=== PATIENT | female | born 1970 | race Caucasian/White ===

== ENCOUNTER 2019-10-22 07:26 | Inpatient (IN) | payer MEDICAID, SELFPAY ==
[2019-10-22] VITALS (10 sets, daily range): BP systolic 109–163; BP diastolic 63–100; PULSE 87–156; RESP 8–20; TEMP 36.4–36.8; O2SAT 89–100
--- NOTE | ~2019-10-22 | XR_ITS ---
EXAMINATION: XR humerus RT INDICATION: Soft tissue wound overlying the proximal humerus TECHNIQUE: Two views of the right humerus are obtained. COMPARISON: None available FINDINGS: There is no fracture, dislocation, or subluxation. Bone alignment is normal. There is later al soft tissue swelling overlying the humeral head and proximal humerus. No underlying osseous abnorm ality is identified. IMPRESSION: 1. Soft tissue swelling of the shoulder and upper arm without evidence of underlying osseous abnormal ity. Reviewed, dictated and finalized at location A. IMPRESSION: 1. Soft tissue swelling of the shoulder and upper arm without evidence of under lying osseous abnormality.
--- NOTE | 2019-10-22 07:43 | ED.WOUNDLAC ---
HPI - Wound/Laceration General Chief Complaint: Wound/Laceration Stated Complaint: R UPPER ARM INJECTION INFX Time Seen by Provider: 10/22/19 07:32 Source: RN notes reviewed History of Present Illness HPI narrative: Patient presents emergency department from home for right shoulder abscess. Patient states symptoms began 2 days ago. Patient states that the area has enlarged and did begin draining on its own yesterday with purulent drainage. Patient notes pain to the area. States that she is an IV drug user with fentanyl and has injected in that region recently. Patient denies any fevers or chills numbness or tingling of the extremities or any other symptoms of concern Related Data Home Medications Medication Instructions Recorded Confirmed clonidine HCl [Catapres] 0.1 mg PO DAILY 10/22/19 10/22/19 Allergies Allergy/AdvReac Type Severity Reaction Status Date / Time Penicillins Allergy Unknown Other Verified 10/22/19 08:51 Review of Systems Review of Systems: Narrative: Gen.: Denies fevers or chills ENT: Denies congestion Respiratory: Denies shortness of breath or cough CV: Denies chest pain or palpitations GI: Denies abdominal pain nausea, emesis or diarrhea Musculoskeletal: Denies back pain or muscle pain Neuro: Denies numbness, tingling, weakness or focal weakness Skin: See HPI Except as documented, all other systems reviewed and negative [facility] Past Medical History Medical History (Updated 10/22/19 @ 10:08 by Claude Boateng DO) Asthma Hypertension IV drug abuse Seizure last one in april Surgical History Surgical History No significant past surgical history Family History Family History Father Acute myocardial infarction Mother Ovarian cancer Social History Social History Social History: The patient is unemployed and homeless. She is an IV drug user and has been using illicit drugs on and off for about 20 years. She smokes about 1/2 PPD if she is able to get this from others. Does not have anyone to designate as her decision maker. Smoking status: Current every day smoker Tobacco type: cigarettes Substance use: current Substance use type: IV drugs Other substance usage details: Fentanyl Last use: 2:00 am Living arrangements: homeless Occupation/Education: unemployed Exam Narrative: Exam Narrative: APPEARANCE: No acute distress, nontoxic, resting in bed EYES: EOMI HEENT: Normocephalic, atraumatic, OMM RESPIRATORY: No respiratory distress Clear to auscultation bilaterally with no rhonchi wheezing or rales. CARDIOVASCULAR: Regular rate and rhythm without murmurs rubs or gallops. Bilateral pulse 2+ ABDOMINAL: Soft, nontender, nondistended, no rebound or guarding MUSCULOSKELETAl: Moves all extremities. No clubbing, cyanosis or edema. Tenderness of the right lateral arm in the area of the abscess range of motion right shoulder elbow and wrist right upper extremity neurovascular intact NEURO: Awake and alert. Following commands, speech normal, no focal deficits SKIN:: Warm, dry. Large area of erythema and fluctuance to the right lateral shoulder with purulent drainage present consistent with large abscess PSYCHIATRIC: Normal affect/mood, Course Course Emergency Course: Discussed with Dr. Dhillon who plans to take patient to the OR today for I&D NAOMIE Kimball for Dr. Dhillon is present emergency department to evaluate the patient Discussed with patient plan for OR in agreement Vital Signs Vital signs: Vital Signs Temperature 97.7 F 10/22/19 07:36 Pulse Rate 110 H 10/22/19 07:36 Respiratory Rate 14 10/22/19 07:36 Blood Pressure 132/79 10/22/19 07:36 Pulse Oximetry 99 10/22/19 07:36 Temperature 98.2 F 10/22/19 09:21 Pulse Rate 156 H 10/22/19 09:21 Respiratory Rate 20 10/22/19 09:21 Blo
--- NOTE | 2019-10-22 08:11 | PC.NURSE ---
RN attempted IV x3. Pt. has hx of IV drug abuse. Called Ultrasound ARCHITECTURAL SALES CONSULTANT specialist to attempt access.
--- NOTE | 2019-10-22 08:50 | PM.IMHP ---
H&P: HPI History of Present Illness Chief complaint: R UPPER ARM INJECTION INFX Narrative: Alexandra Loyola is a 49 year old female who is an IV drug user that presented to the ER for evaluation of right upper arm swelling and pain. She reports first noticing pain in her right upper arm about 5 days ago. She reportedly has recently injected Fentanyl in this same area at the right upper arm. She reports noticing redness and swelling about 2 days after first noticing pain in the right upper arm. Last night around 2:00 am she noticed pus-like drainage from the abscess and this is also when she last injected Fentanyl. The pain continued to worsen and she presented to the ED for further evaluation. She was found to have a right upper arm abscess in the ED and our service was contacted for surgical evaluation. The patient is now being seen in the ED and has no IV access at this time. They have the IV access nurse at the bedside trying to find access with an ultrasound. She reports pain in her right upper arm and decreased range of motion of the right shoulder. She is tearful on my exam and anxious. Denies fevers or chills at home. No history of abscess in the past or MRSA. No other complaints at this time. Have been unable to get labs on the patient due to her poor vascular access. Also to note, the patient states she is homeless and unemployed. She states that she has not seen a primary care provider in years. She has been using illicit drugs on and off for about 20 years. Review of Systems Constitutional: Constitutional: Reports as per HPI, Reports no additional constitutional complaints, Denies chills, Denies excessive sweating, Denies fatigue, Denies fever(s) and Denies weakness Eyes: Eyes: Reports no additional eye complaints, Denies change in vision and Denies loss of vision ENT: Reports system reviewed and no additional complaints, except as documented, Denies dysphagia, Denies dizziness, Denies dry mouth, Denies hearing loss and Denies lip swelling Cardiovascular: Cardiovascular: Reports no additional cardiovascular complaints, Denies chest pain, Denies syncope, Denies radiating jaw, neck or arm pain, Denies dyspnea and Denies dyspnea on exertion Respiratory: Respiratory: Reports no additional respiratory complaints, Denies cough, Denies dyspnea, Denies dyspnea on exertion and Denies wheezing Gastrointestinal: Gastrointestinal: Reports no additional gastrointestinal complaints, Denies abdominal pain, Denies bloating, Denies change in bowel habits, Denies dysphagia, Denies diarrhea, Denies nausea and Denies vomiting Musculoskeletal: Musculoskeletal: Denies abnormal gait, Denies myalgias, Reports joint swelling (right shoulder around abscess), Reports limited range of motion (right shoulder d/t abscess), Denies numbness, Reports radiating pain into limb (right arm) and Denies tingling Integumentary/Breasts: Skin/Breast: Reports system reviewed and no additional complaints, except as docu, Reports as per HPI and Reports swelling (right arm abscess) Neurologic: Reports system reviewed and no additional complaints, except as documented, Denies abnormal gait, Denies confusion, Denies dizziness, Denies syncope, Denies loss of vision, Denies tingling and Denies weakness Psychiatric: Psychiatric: Reports anxiety (due to pain) and Denies confusion Endocrine: Endocrine: Denies cold intolerance, Denies excessive sweating, Denies fatigue, Denies heat intolerance and Denies polyuria [facility] Family History Family History Father Acute myocardial infarction Mother Ovarian cancer Social History Social History Social History: The patient is unemployed and homeless. She is an IV drug user and has been using illicit drugs on and off for about 20 years. She smokes about 1/2 PPD if she is able to get this from others. Does not have anyone to designate as her decision maker.
[2019-10-22 09:10] LABS: Basophils Absolute Auto 0.1 K/mm3 (0.0-0.1); Basophils Percent Auto 0.5 % (0.2-1.2); Eosinophils Percent Auto 0.1 % (0-4.4); Hematocrit 45.2 % (37.0-47.0); Immature Granulocyte Absolute 0.13 K/mm3 (0.00-0.031); Immature Granulocyte Percent A 0.7 % (0-0.5); Lymphocytes Absolute Auto 1.34 K/mm3 (0.9-3.2); Lymphocytes Percent Auto 7.1 % (18.3-44.2); Mean Corpuscular HGB Conc 33.2 g/dl (32-36); Mean Corpuscular Hemoglobin 28.4 pg (26-34); Mean Corpuscular Volume 85.4 fl (80-100); Mean Platelet Volume 10.1 fl (7.4-10.4); Monocytes Absolute Auto 1.4 K/mm3 (0.1-0.6); Monocytes Percent Auto 7.4 % (2.6-8.5); Neutrophils Percent Auto 84.2 % (45.5-73.1); Platelet Count Result 295 k/mm3 (150-375); Red Blood Count 5.29 M/mm3 (4.2-5.4); Red Cell Distribution Width 12.8 % (11.5-14.5)
--- NOTE | 2019-10-22 09:12 | WPDANESEPPF ---
Anes - Initial Pre Proc Eval Procedure: Operation Date: 10/22/19 08:45 Proposed Procedures p Incision and Drainage Right Shoulder Abscess - Ramos Dhillon MD Date/Time: 10/22/19 09:12 Surgeon: Ramos Dhillon MD Pre Op Diagnosis: R UPPER ARM INJECTION INFX Patient Data Age: 49 Gender: F Height: 1.7 m Weight: 55 kg Last Vital Signs Temp 36.5 C 10/22/19 07:36 Pulse 110 H 10/22/19 07:36 Resp 14 10/22/19 07:36 BP 132/79 10/22/19 07:36 Pulse Ox 99 10/22/19 07:36 Allergies Allergy/AdvReac Type Severity Reaction Status Date / Time Penicillins Allergy Unknown Other Verified 10/22/19 08:51 Home Medications Medication Instructions Recorded Confirmed Type clonidine HCl [Catapres] 0.1 mg PO DAILY 10/22/19 History Laboratory Tests 10/22/19 10/22/19 10/22/19 08:58 08:58 08:59 WBC 19.0 K/mm3 H K/mm3 (4.5-10.0) RBC 5.29 M/mm3 M/mm3 (4.2-5.4) Hgb 15.0 g/dL g/dL (12.0-15.0) Hct 45.2 % % (37.0-47.0) MCV 85.4 fl fl (80-100) MCH 28.4 pg pg (26-34) MCHC 33.2 g/dl g/dl (32-36) RDW 12.8 % % (11.5-14.5) Plt Count 295 k/mm3 k/mm3 (150-375) MPV 10.1 fl fl (7.4-10.4) Immature Gran % (Auto) 0.7 % H % (0-0.5) Neut % (Auto) 84.2 % H % (45.5-73.1) Lymph % (Auto) 7.1 % L % (18.3-44.2) [place] % (Auto) 7.4 % % (2.6-8.5) Eos % (Auto) 0.1 % % (0-4.4) Baso % (Auto) 0.5 % % (0.2-1.2) Lymph # (Auto) 1.34 K/mm3 K/mm3 (0.9-3.2) [place] # (Auto) 1.4 K/mm3 H K/mm3 (0.1-0.6) Eos # (Auto) 0.0 K/mm3 K/mm3 (0-0.3) Baso # (Auto) 0.1 K/mm3 K/mm3 (0.0-0.1) Abs Immat Gran (auto) 0.13 K/mm3 H K/mm3 (0.00-0.031) Absolute Neuts (auto) 16.0 K/mm3 H K/mm3 (1.3-6.7) Absolute Nucleated RBC 0.0 K/mm3 K/mm3 (0.0-0.012) Nucleated RBC % 0.0 % % (0.0-0.2) PT Pending INR Pending APTT Pending Sodium Potassium Chloride Carbon Dioxide BUN Creatinine Estim Creat Clear Calc Estimated GFR Glucose Lactic Acid Pending Calcium 10/22/19 08:59 WBC RBC Hgb Hct MCV MCH MCHC RDW Plt Count MPV Immature Gran % (Auto) Neut % (Auto) Lymph % (Auto) [place] % (Auto) Eos % (Auto) Baso % (Auto) Lymph # (Auto) [place] # (Auto) Eos # (Auto) Baso # (Auto) Abs Immat Gran (auto) Absolute Neuts (auto) Absolute Nucleated RBC Nucleated RBC % PT INR APTT Sodium Pending Potassium Pending Chloride Pending Carbon Dioxide Pending BUN Pending Creatinine Pending Estim Creat Clear Calc Pending Estimated GFR Pending Glucose Pending Lactic Acid Calcium Pending Patient hx anesthesia problems: none Family hx anesthesia problems: none [facility] Past Medical History Medical History (Updated 10/22/19 @ 09:24 by Amari Rodas DO) Asthma Hypertension IV drug abuse Seizure last one in april Surgical History Surgical History No significant past surgical history Family History Family History Father Acute myocardial infarction Mother Ovarian cancer Social History Social History Social History: The patient is unemployed and homeless. She is an IV drug user and has been using illicit drugs on and off for about 20 years. She smokes about 1/2 PPD if she is able to get this from others. Does not have anyo
[2019-10-22 09:20] LABS: INR 1.2; Prothrombin Time 14.9 Seconds (11.1-14.7)
[2019-10-22 09:21] LABS: Partial Thromboplastin Time 35.8 SECONDS (22.3-36.8)
[2019-10-22 09:22] LABS: Lactic Acid Reflex 1.8 mmol/L (0.7-2.1)
[2019-10-22 09:22] LABS: Blood Urea Nitrogen 19 mg/dL (7-17); Calcium 9.4 mg/dL (8.4-10.2); Carbon Dioxide 27 mmol/L (22-30); Chloride 95 mmol/L (98-107); Estimated CRCL calculation 74 ml/min; Estimated Glomerular Filt Rate > 60; Glucose 126 mg/dL (65-105); Potassium 4.5 mmol/L (3.4-5.0); Sodium 131 mmol/L (137-145)
[2019-10-22] MEDS: LACTATED RINGERS 1,000 ML 30 ML IV CONT (09:25)
--- NOTE | 2019-10-22 09:34 | SUR.PREOP ---
PT OFFERED THAT FAMILY BE NOTIFIED AND UPDATED RELATED TO HER STAY IN OUR DEPT/SHE DENIES NEED TO NOTIFY ANYONE.
--- NOTE | 2019-10-22 10:20 | PM.PNGS ---
Progress Note: A&P Assessment and Plan (1) Abscess of right arm: Code(s): L02.413 - Cutaneous abscess of right upper limb Status: Acute Assessment and Plan: Will proceed with emergent incision and drainage of this abscess. IV access was established in the emergency room with difficulty. She will require outpatient care following discharge. (2) IV drug abuse: Code(s): F19.10 - Other psychoactive substance abuse, uncomplicated Status: Chronic Assessment and Plan: Likely etiology of abscess. Will consult hospitalist for management and possibility of withdrawal symptoms. (3) Homeless single person: Code(s): Z59.0 - Homelessness Status: Chronic Assessment and Plan: Patient to be admitted as her social situation makes it likely she will have further problems and failed to follow up if she is discharged. Subjective Subjective Date/Time Seen: 10/22/19 10:20 Patient seen in the preoperative area. I discussed her care with the emergency room physician and with Callie BUCKNER. She has a long history of IV drug abuse and presented to the emergency room with a large abscess over the right deltoid and shoulder. It is very painful. She is taken to surgery now for incision and drainage. Review of Systems Review of Systems: All systems reviewed & are unremarkable except as noted in HPI and below Constitutional: Constitutional: Denies headache(s) Cardiovascular: Cardiovascular: Denies chest pain and Denies dyspnea Respiratory: Respiratory: Denies cough and Denies dyspnea Neurologic: Denies confusion and Denies headache(s) Exam Extrem: Right upper extremity: shoulder/upper arm (Large abscess with 2 areas necrotic skin, fluctuant, tender) abnormal to inspection (Large abscess), tenderness, swelling and warmth Objective Data Vital Signs Vital Signs: Vital Signs - 24 hr 10/22/19 07:36 10/22/19 09:10 10/22/19 09:21 Temperature 36.5 C 36.8 C Pulse Rate 110 H 106 H 156 H Respiratory Rate 14 18 20 Blood Pressure 132/79 127/85 146/79 H Pulse Oximetry 99 99 89 L Intake/Output Intake/Output: Intake & Output 10/19/19 10/20/19 10/21/19 10/22/19 23:59 23:59 23:59 23:59 Intake Total 250 Balance 250 Meds/Results Medications: Active Medications Generic Name Dose Route Start Last Admin Trade Name Freq PRN Reason Stop Dose Admin Fentanyl Citrate 25 mcg 10/22/19 09:25 Sublimaze IV PUSH Q2M PRN Pain Lactated Ringer's 1,000 mls @ 30 mls/hr 10/22/19 09:25 10/22/19 09:25 Lr - Lactated Ringers Iv IV CONT 30 mls/hr .Q24H JUSTYN Administration Lactated Ringer's 1,000 mls @ 30 mls/hr 10/22/19 09:25 Lr - Lactated Ringers Iv IV CONT .Q24H JUSTYN Vancomycin HCl 750 mg in 250 mls @ 250 mls/hr 10/23/19 04:00 Vancomycin 750 Mg/D5w 250 Ml IVPB Q18H JUSTYN Ondansetron HCl 4 mg 10/22/19 09:25 Zofran Inj IV PUSH ONCE PRN Nausea Radiology Results: ITS Impressions Humerus X-Ray 10/22/19 08:20 IMPRESSION: 1. Soft tissue swelling of the shoulder and upper arm without evidence of underlying osseous abnormality. Labs Labs: Laboratory Results - last 24 hr 10/22/19 10/22/19 10/22/19 08:58 08:58 08:59 WBC 19.0 H RBC 5.29 Hgb 15.0 Hct 45.2 MCV 85.4 MCH 28.4 MCHC 33.2 RDW 12.8 Plt Count 295 MPV 10.1 Immature Gran % (Auto) 0.7 H Neut % (Auto) 84.2 H Lymph % (Auto) 7.1 L [place] % (Auto) 7.4 Eos % (Auto) 0.1 Baso % (Auto) 0.5 Lymph # (Auto) 1.34 [place] # (Auto) 1.4 H Eos # (Auto) 0.0 Baso # (Auto) 0.1 Abs Immat Gran (auto) 0.13 H Absolute Neuts (auto) 16.0 H Absolute Nucleated RBC 0.0 Nucleated RBC % 0.0 PT 14.9 H INR 1.2 APTT 35.8 Sodium Potassium Chloride Carbon Dioxide BUN Creatinine Estim Creat Clear Calc Estimated GFR Glucose Lactic Acid 1.8 Calcium 10/22/19
--- NOTE | 2019-10-22 10:26 | P.OP_ITS ---
Procedure Note - Detailed Date of procedure: 10/22/19 Pre-op diagnosis: R UPPER ARM INJECTION INFX Right deltoid and shoulder abscess Post-op diagnosis: same Procedure performed: Incision and drainage of complex right shoulder abscess Description of procedure: Patient was taken to surgery and induced into general anesthesia per LMA. She was turned in left look lateral decubitus position so that the right shoulder was able to be prepped and draped. A stab incision was made over the more lateral necrotic area which had some purulent drainage already. Copious amounts of foul-smelling abscess fluid came out. Cultures were obtained. Once the abscess was drained with the suction, I went ahead and excised the necrotic tissue associated with this opening. I suctioned the abscess cavity thoroughly. I then irrigated the cavity with saline. I broke up loculations with my finger. I then packed the abscess cavity with 1 in iodoform Nu Gauze. The wound was dressed with bulky fluffs ABDs and tape. The patient was returned to a supine position, awakened and taken to recovery in good condition. Anesthesia: GLMA Surgeon: Ramos Dhillon MD Project Management Analyst: Anthony OCAMPO Estimated blood loss (mL): 5 Drains: No Packing: Yes (1 in iodoform Nu Gauze) Pathology: yes (Cultures only) Complications: None Condition: stable Disposition: PACU Findings: Large abscess right shoulder
--- NOTE | 2019-10-22 11:02 | SUR.PHASEI ---
1058; CALLED DR HODGES. PT CONTINUES TO CRY SOFTLY IN PAIN. STATES 7-12/14. DILAUDID ORDERED. PT COMFORTED
[2019-10-22] MEDS: HYDROMORPHONE HCL 1 MG/ML INJ 0.5 MG IV PUSH ×2 (11:06→11:20)
--- NOTE | 2019-10-22 11:19 | SUR.PHASEI ---
1118; PT RESTING QUIETLY. STATES PAIN -11/13. PT NO LONGER CRYING. CALM.
[2019-10-22] MEDS: LACTATED RINGERS 1,000 ML 100 ML IV CONT (12:41)
--- NOTE | 2019-10-22 13:45 | PCDIET ---
Patient arrived to floor from PACU on 10/22/2019 at 1200. Patient's IV was saline locked, and on room air. Report received from MAVIS Lepe.
--- NOTE | 2019-10-30 15:36 | P.DS_ITS ---
DS: Admitting Diagnosis Admitting Diagnosis Admitting Diagnosis: Cutaneous abscess of right upper limb DS: Discharge Diagnosis Discharge Diagnosis (1) Abscess of right arm: Code(s): L02.413 - Cutaneous abscess of right upper limb Status: Acute Assessment and Plan: Patient presented to the emergency room on the day of admission October 22, 2019 with a large right deltoid and shoulder abscess most likely due to a dirty needle and IV drug use. She was taken to the operating room and incision and drainage was performed. The wound was packed. She was to stay overnight and have her packing removed the next day. Instead the patient left AMA that night with no further treatment being able to be rendered. (2) IV drug abuse: Code(s): F19.10 - Other psychoactive substance abuse, uncomplicated Status: Chronic (3) Hypertension: Code(s): I10 - Essential (primary) hypertension Status: Acute (4) Homeless single person: Code(s): Z59.0 - Homelessness Status: Chronic DS: Summary Time Spent with Patient Time attestation: Total time spent providing and/or coordinating discharge services: As above. Patient presented with large right shoulder abscess which was incised and drained and packed. She left AMA the night of surgery. Discharge Plan Discharge Attending physician on discharge: Ramos Dhillon Consulting providers: Nazario Edmonds ; Jayce Vilchis ; Callie Higgins Discharging Clinician: Ramos Dhillon Anticipated Discharge Date/Time: 10/22/19 20:30 Patient Disposition: Left Against Medical Advice Discharge Instructions: Unable to be given Patient Instructions: Pain Management (DC) Follow-up/Referrals: Ramos Dhillon MD [Physician] - Other (We will try to contact her for a follow-up visit.) Discharge Medications: Continued clonidine HCl [Catapres] 0.1 mg tablet 0.1 mg PO DAILY RF: 0 buprenorphine-naloxone 8-2 mg tablet, sublingual SUBLINGUAL RF: 0 Date of admission: 10/22/19 11:50 Primary Care Provider: PHYSICIAN,REMOTE SENSING ADVISOR Admitting Provider: Ramos Dhillon Discharge Date/Time: 10/22/19 18:10 Attending physician on admission: Ramos Dhillon Condition: Stable
--- NOTE | 2019-11-13 09:29 | P.CONIM_ITS ---
HPI Data of Consult Consult date: 11/13/19 Requesting Physician: Ramos Dhillon MD Primary Care Provider: HUMAN RESOURCES TECHNICIAN PHYSICIAN Consult Narrative Narrative: Alexandra Loyola is a 49 year old female consulted by surgical service for assistance in treating an abscess. Before patient could be seen she sliding out of the hospital against medical advice so no consultation was formally performed [facility] Past Medical History Medical History (Updated 10/22/19 @ 10:24 by Ramos Dhillon MD) Asthma Hypertension IV drug abuse Seizure last one in april Surgical History Surgical History No significant past surgical history Family History Family History Father Acute myocardial infarction Mother Ovarian cancer Social History Social History Social History: The patient is unemployed and homeless. She is an IV drug user and has been using illicit drugs on and off for about 20 years. She smokes about 1/2 PPD if she is able to get this from others. Does not have anyone to designate as her decision maker. Smoking packs per day: 0.5 Smoking cigarettes per day: 10.0 Years smoked: 35 Smoking pack-years: 17.50 Smoking status: Current every day smoker Tobacco type: cigarettes Alcohol intake: never Substance use: current Substance use type: opiates Other substance usage details: Fentanyl Last use: 2:00 am Living arrangements: homeless Occupation/Education: unemployed Spiritual care concerns: No Meds Home Medications and Allergies Home Medications Medication Instructions Recorded Confirmed Type buprenorphine-naloxone tablet SUBLINGUAL 10/22/19 History clonidine HCl [Catapres] 0.1 mg PO DAILY 10/22/19 10/22/19 History Allergies Allergy/AdvReac Type Severity Reaction Status Date / Time Penicillins Allergy Unknown Other Verified 10/22/19 08:51 Results Labs CBC & Chem 7: 10/22/19 08:59 10/22/19 08:59
== END 2019-10-22 18:10 | disposition left against medical advice (07) | DRG 361 ==
LOC: ANHED 08:17 → ANHSURGERY 08:19 → ANH3MEDSUR 11:56
PROVIDERS: Admitting Provider Surgery; Emergency Provider Emergency Medicine; Visit Provider Surgery
PROC: 0HBBXZZ Excision of Right Upper Arm Skin, External Approach (ICD-10-PCS; principal; 2019-10-22 08:45)
DX: L02.413 Cutaneous abscess of right upper limb (principal); I96 Gangrene, not elsewhere classified; F19.10 Other psychoactive substance abuse, uncomplicated; I10 Essential (primary) hypertension; F17.210 Nicotine dependence, cigarettes, uncomplicated; Z56.0 Unemployment, unspecified; Z59.0 Homelessness; Z88.0 Allergy status to penicillin
CPT/HCPCS: 36415; 73060; 80048; 83605; 85025; 85610; 85730; 87040; 87070; 87075; 87076; 87077; 87185; 87205; 96361; 96365; 96375; 99285; J1170; J2250; J2405; J2704; J3010; J3370; J7120

== ENCOUNTER 2019-12-30 00:53 | Inpatient (IN) | payer MEDICAID, SELFPAY ==
[2019-12-30] VITALS (18 sets, daily range): BP systolic 86–163; BP diastolic 53–96; PULSE 83–109; RESP 15–22; TEMP 36.1–36.8; O2SAT 96–100; BMI 15.5
--- NOTE | ~2019-12-30 | CT_ITS ---
EXAMINATION: CT chest abdomen pelvis w con DATE: 12/30/2019 02:36 INDICATION: Vomiting. Sepsis. Hypotension. TECHNIQUE: Computed tomography (CT) of the chest, abdomen, and pelvis was performed with 100 mL Omnip aque 350 intravenous contrast. Automated exposure control and iterative reconstruction technique were employed. The dose-length product was 330.06 mGy-cm. COMPARISON: None FINDINGS: CHEST CT: The lungs demonstrate mild atelectasis. No pleural effusion. There is an 11 mm nodule in left thyroid lobe, likely not clinically significant. The heart size is normal. There is left ventricular hypertr ophy of the heart. No pericardial effusion. There is thoracic dextroscoliosis and mild spondylosis. ABDOMEN/PELVIS CT: The liver demonstrates focal steatosis adjacent to ligamentum teres. There are normal clefts in the s pleen. The gallbladder, pancreas, and right adrenal gland are normal. There is a 1.4 cm mass in left adrenal gland measuring soft tissue attenuation. There is cortical thinning of the kidneys. There is mild wall thickening throughout the colon, consistent with colitis. The appendix is normal. There are dilated loops of small bowel without focal transition point, consistent with adynamic ileus. There a re no pathologically enlarged lymph nodes. There is no free intraperitoneal fluid. There is severe patty mbar spondylosis. IMPRESSION: 1. Pancolitis. 2. Dilated small bowel without focal transition point, consistent with adynamic ileus. 3. 1.4 cm left adrenal mass. In the absence of known malignancy, this finding is likely an adenoma. Reviewed, dictated and finalized at location B. IMPRESSION: 1. Pancolitis. 2. Dilated small bowel without focal transition point, consistent with adynamic ileus. 3. 1.4 cm left adrenal mass. In the absence of known malignancy, this finding i s likely an adenoma.
--- NOTE | ~2019-12-30 | CT_ITS ---
EXAMINATION: CT brain wo con EXAM DATE: 12/30/2019 02:36 INDICATION: Altered mental status. TECHNIQUE: Spiral CT of the head was performed without contrast. Axial, coronal and sagittal images were reviewed. The dose-length product (DLP) for this examination was 605.33 mGy-cm. The exposure w as tailored according to patient size, and iterative reconstruction (ASIR) was used as additional dos e reduction technique. There is no prior study for comparison. FINDINGS: There is no acute intraparenchymal hemorrhage. No evidence of intraparenchymal brain mass lesion. No evidence of acute infarction. There is no mass effect or midline shift. The ventricles are normal in size. There are no extra-axial collections. There are no acute calvarial fractures. T he orbits are unremarkable. Soft tissue is unremarkable. The visualized sinuses and mastoid air evelio ls are well aerated. IMPRESSION: 1. No acute intracranial findings. Reviewed, dictated and finalized at location A.
--- NOTE | 2019-12-30 00:54 | ECG_ITS ---
Measurements Intervals [place] Rate: 90 P: 68 VT: 129 QRS: 36 QRSD: 98 T: 54 QT: 408 QTc: 499 Interpretive Statements SINUS RHYTHM LEFT VENTRICULAR HYPERTROPHY AND ST-T CHANGE ST-T WAVE ABNORMALITY IN ANTEROLATERAL LEADS- CONSIDER ISCHEMIA ABNORMAL ECG Electronically Signed On 12-30-2019 7:29:22 CDT by Cleve Leal D.O.
--- NOTE | 2019-12-30 00:54 | ED.ABDPAIN ---
HPI - Abdominal Pain General Chief Complaint: Abdominal Pain Stated Complaint: AMS/ ABD PAIN/ DIARRHEA Time Seen by Provider: 12/30/19 00:54 Source: patient and EMS Mode of arrival: EMS Limitations: clinical condition History of Present Illness HPI narrative: Patient is a 49-year-old female who presents for evaluation of abdominal pain. Patient's called EMS when the patient became fatigued and lethargic this evening. Patient reportedly has had a 12-hour history of vomiting and diarrhea. She is currently alert and oriented to person, place, and to time. She is tired appearing, but reporting nausea and abdominal pain throughout her abdomen. She also has been reporting watery diarrhea. Patient has been given Narcan in route due to the fatigue, lethargy without improvement in her symptoms. She is hypotensive with a blood glucose of 73. She was given IV fluids and Zofran. Related Data Home Medications Medication Instructions Recorded Confirmed buprenorphine-naloxone tablet SUBLINGUAL 10/22/19 clonidine HCl [Catapres] 0.1 mg PO DAILY 10/22/19 10/22/19 Allergies Allergy/AdvReac Type Severity Reaction Status Date / Time Penicillins Allergy Unknown Other Verified 12/30/19 01:09 Review of Systems Review of Systems: Narrative: CONSTITUTIONAL: Denies fever CARDIOVASCULAR: Denies chest pain RESPIRATORY: Denies cough or dyspnea. GASTROINTESTINAL: Reports abdominal pain and diarrhea SKIN: Denies rash MUSCULOSKELETAL: Denies back pain NEUROLOGIC: Denies headache PMFSH Past Medical History Medical History Asthma Hypertension IV drug abuse Seizure last one in april Surgical History Surgical History No significant past surgical history Family History Family History Father Acute myocardial infarction Mother Ovarian cancer Social History Social History Social History: The patient is unemployed and homeless. She is an IV drug user and has been using illicit drugs on and off for about 20 years. She smokes about 1/2 PPD if she is able to get this from others. Does not have anyone to designate as her decision maker. Smoking packs per day: 0.5 Smoking cigarettes per day: 10.0 Years smoked: 35 Smoking pack-years: 17.50 Smoking status: Current every day smoker Tobacco type: cigarettes Alcohol intake: never Substance use: current Substance use type: opiates Other substance usage details: Fentanyl Last use: 2:00 am Spiritual care concerns: No Exam Narrative: Exam Narrative: GENERAL: Tired appearing, responds to verbal stimuli, eyes closed on bed HEAD: Normocephalic, atraumatic. EYES: PERRLA and EOMI. ENT: Nares clear, no rhinorrhea or epistaxis. Mucous membranes dry NECK: Supple. CHEST: No respiratory distress, breathing even and non labored HEART: Regular rate, sinus rhythm ABDOMEN: Mild distention, tender throughout abdomen, positive guarding Rectal: External, nonthrombosed hemorrhoid. No melena. EXTREMITIES: Normal range of motion. No edema. SKIN: Pale, dry, no rash. NEURO:No focal deficits. Alert and oriented x3 Course Vital Signs Vital signs: Vital Signs Temperature 36.5 C 12/30/19 00:50 Pulse Rate 96 12/30/19 00:50 Respiratory Rate 15 12/30/19 00:50 Blood Pressure 86/53 L 12/30/19 00:50 Pulse Oximetry 99 12/30/19 00:50 Temperature 36.5 C 12/30/19 00:50 Pulse Rate 100 12/30/19 03:31 Respiratory Rate 18 12/30/19 03:31 Blood Pressure 112/63 12/30/19 03:31 Pulse Oximetry 98 12/30/19 03:31 MDM - Abdominal Pain MDM Narrative Medical decision making narrative: Patient presented for evaluation of abdominal pain, nausea and vomiting. Per , patient was lethargic and thus called EMS. At the time of assessment,
[2019-12-30] MEDS: SODIUM CHLORIDE 0.9% IV 1,000 ML 999 ML IV CONT (01:10)
[2019-12-30 01:21] LABS: Basophils Absolute Auto 0.2 K/mm3 (0.0-0.1); Basophils Percent Auto 0.8 % (0.2-1.2); Hematocrit 43.1 % (37.0-47.0); Hemoglobin 14.1 g/dL (12.0-15.0); Immature Granulocyte Absolute 0.11 K/mm3 (0.00-0.031); Immature Granulocyte Percent A 0.5 % (0-0.5); Lymphocytes Absolute Auto 3.17 K/mm3 (0.9-3.2); Lymphocytes Percent Auto 14.7 % (18.3-44.2); Mean Corpuscular HGB Conc 32.7 g/dl (32-36); Mean Corpuscular Volume 88.5 fl (80-100); Mean Platelet Volume 9.4 fl (7.4-10.4); Monocytes Absolute Auto 0.8 K/mm3 (0.1-0.6); Monocytes Percent Auto 3.5 % (2.6-8.5); Neutrophils Absolute Auto 17.4 K/mm3 (1.3-6.7); Neutrophils Percent Auto 80.5 % (45.5-73.1); Platelet Count Result 394 k/mm3 (150-375); Red Blood Count 4.87 M/mm3 (4.2-5.4); White Blood Count 21.6 K/mm3 (4.5-10.0)
[2019-12-30 01:30] LABS: INR 1.2; Prothrombin Time 14.7 Seconds (11.1-14.7)
[2019-12-30 01:31] LABS: Partial Thromboplastin Time 30.6 SECONDS (22.3-36.8)
[2019-12-30 01:49] LABS: Alanine Aminotransferase 15 U/L (4-35); Alkaline Phosphatase 69 U/L (38-126); Anion Gap 18 mmol/L (8-16); Aspartate Amino Transferase 41 U/L (14-36); Bilirubin,Total 0.7 mg/dL (0.2-1.3); Blood Urea Nitrogen 22 mg/dL (7-17); Calcium 9.4 mg/dL (8.4-10.2); Carbon Dioxide 23 mmol/L (22-30); Chloride 91 mmol/L (98-107); Estimated CRCL calculation 28 ml/min; Estimated Glomerular Filt Rate 34; Glucose 60 mg/dL (65-105); Lipase 668 U/L (23-300); Potassium 2.9 mmol/L (3.4-5.0); Sodium 132 mmol/L (137-145)
[2019-12-30 01:50] LABS: Lactic Acid Reflex 7.1 mmol/L (0.7-2.1)
[2019-12-30 01:54] LABS: Troponin I 0.121 ng/mL (0.000-0.034)
[2019-12-30] MEDS: DEXTROSE 5%/0.45% SOD CHL 1,000 ML 100 ML IV CONT (02:00)
--- NOTE | 2019-12-30 02:12 | PC.NURSE ---
pt received a total of 2L NS. 1L initiated by EMS CONSTRUCTION SUPERVISOR and 1L initiated upon arrival per MD verbal order.
--- NOTE | 2019-12-30 03:14 | PC.NURSE ---
pt sleeping on stretcher at this time in NAD. pt remains hooked up to monitor, will continue to monitor pt for baseline status changes.
[2019-12-30 04:19] LABS: Reflex Lactic Acid Yes or No Add Lactic
[2019-12-30 05:02] LABS: Add Urine Microscopic? YES; Appearance Urine Clear (Clear); Bacteria Urine Trace /hpf; Bilirubin Urine Negative (Negative); Blood Urine 1+ (Negative); Color Urine Yellow (Yellow); Glucose Urine UA 1+ mg/dL (Negative); Ketones Urine Negative (Negative); Leukocyte Esterase Ur Trace LEU/UL (Negative); Mucus Urine Rare /lpf; Nitrate Urine Negative (Negative); Protein Urine 2+ mg/dL (Negative); RBC Urine 0-2 /hpf (0-2); Squamous Epithelial Cell Urine Many /hpf (Few); Urobilinogen Urine Negative mg/dL (<2.0)
[2019-12-30 05:03] LABS: Specific Grav Ur 1.033 (1.001-1.035)
[2019-12-30 05:06] LABS: Lactic Acid 1.1 mmol/L (0.7-2.1)
--- NOTE | 2019-12-30 05:41 | ADMGEN ---
This patient, Alexandra Loyola, was admitted to IMU Room 203-01 at 0541. Patient/family oriented to hospital policies and general routines including ID bracelet, bed and alarms, visiting hours, pain management, procedures, bathroom and other care routines, personal items, smoking policy, room service/diet, and visiting hours. Valuables list has been completed. Information on how to activate the Rapid Response Team has been discussed. Patient/Family are encouraged to report perceived risks to care and to ask questions if they do not understand what they are told or what they should do.
--- NOTE | 2019-12-30 09:08 | PM.IMHP ---
H&P: HPI History of Present Illness Date/Time: 12/30/19 09:08 Chief complaint: Septic shock, Colitis, Elevated troponin Narrative: Date of visit 12/29 844 Alexandra Loyola is a 49 year old female presented to the emergency room with complaints of a nausea and diarrhea. She had been vomiting for days and has had chronic diarrhea since surgery in November near [place] for small-bowel obstruction. Relates that she has been hospitalized several times since then for abdominal pain and diarrhea in hospitals in [place] with no definite diagnosis rendered. she states she was getting lightheaded and almost passed out more than once before she came in. no fever no chills no cough. she was last hospitalized here in October for abscess in the right arm and left the hospital against medical advice. said that that did heal. no history of peptic disease and no melena or hematochezia. CT scan in ER revealed hadley colitis with no obstruction but compatible with ileus Review of Systems Review of Systems: Narrative: , says she has lost weight the last 6 months but unsure how much an appetite had been fair prior to the present illness and no fever Eye no double vision scotoma mouth no pharyngitis laryngitis pulmonary no shortness breath wheezing or cough CV no chest pain or palpitation GI as per present illness no symptoms GYNE post menopausal about 2 years extremities no edema no seizures integument no skin breakdown rashes PMFSH Past Medical History Medical History (Updated 12/30/19 @ 09:20 by Jayce Vilchis MD) Asthma Hypertension IV drug abuse Seizure last one in april Small bowel obstruction Surgical History Surgical History (Updated 12/30/19 @ 09:17 by Jayce Vilchis MD) No significant past surgical history S/P laparotomy Family History Family History Father , in his 50s Acute myocardial infarction Mother Ovarian cancer Social History Social History (Updated 12/30/19 @ 09:18 by Jayce Vilchis MD) Social History: The patient is unemployed and homeless. She is an IV drug user and has been using illicit drugs on and off for about 20 years. She smokes about 1/2 PPD if she is able to get this from others. Does not have anyone to designate as her decision maker. states she has been drug free past 30-60 days Smoking packs per day: 0.5 Smoking cigarettes per day: 10.0 Years smoked: 35 Smoking pack-years: 17.50 Smoking status: Current every day smoker Tobacco type: cigarettes Alcohol intake: never Substance use: current Substance use type: sedatives Other substance usage details: ,klonipine, fentanyl Last use: 2:00 am Spiritual care concerns: No Meds Home Medications and Allergies Home Medications Medication Instructions Recorded Confirmed Type buprenorphine-naloxone 1.5 tablet SUBLINGUAL DAILY 10/22/19 12/30/19 History clonidine HCl [Catapres] 0.1 mg PO BID 10/22/19 12/30/19 History carvedilol 6.25 mg PO BID 12/30/19 12/30/19 History hydrocodone-acetaminophen 1 tablet PO Q8H PRN 12/30/19 12/30/19 History Allergies Allergy/AdvReac Type Severity Reaction Status Date / Time Penicillins Allergy Unknown Other Verified 12/30/19 01:09 Vital Signs Vital Signs - 24 hr 12/30/19 00:50 12/30/19 01:55 12/30/19 02:07 Temperature 36.5 C Pulse Rate 96 100 100 Respiratory Rate 15 15 16 Blood Pressure 86/53 L 121/96 H 109/57 L Pulse Oximetry 99 96 98 12/30/19 03:13 12/30/19 03:31 12/30/19 05:45 Temperature Pulse Rate 100 100 93 Respiratory Rate 16 18 18 Blood Pressure 120/61 112/63 Pulse Oximetry 98 98 98 12/30/19 05:48 12/30/19 05:50 12/30/19 06:00 Temperature Pulse Rate 109 H 92 90 Respiratory Rate 18 Blood Pressure 137/79 Pulse Oximetry 98 12/30/19 07:05 Temperature 36.5 C Pulse Rate 94 Respiratory Rate 18 Blood Pressure 127/59 L Pulse Oximetry 97 Exam Na
[2019-12-30] MEDS: metroNIDAZOLE 500 MG/ISO 100ML 500 MG/100 ML BAG 100 MG IVPB ×3 (09:37→21:05)
[2019-12-30] MEDS: SODIUM CHLORIDE 0.9% IV 1,000 ML 125 ML IV CONT ×2 (12:09→21:03)
[2019-12-30 12:55] LABS: Albumin Level 2.6 g/dL (3.5-5.1); Anion Gap 9 mmol/L (8-16); Blood Urea Nitrogen 23 mg/dL (7-17); Calcium 8.3 mg/dL (8.4-10.2); Carbon Dioxide 18 mmol/L (22-30); Chloride 101 mmol/L (98-107); Estimated CRCL calculation 53 ml/min; Estimated Glomerular Filt Rate > 60; Glucose 104 mg/dL (65-105); Phosphorus 3.2 mg/dL (2.5-4.5); Potassium 3.5 mmol/L (3.4-5.0); Sodium 128 mmol/L (137-145); Troponin I 0.084 ng/mL (0.000-0.034)
[2019-12-30] MEDS: POTASSIUM CHLORIDE 20 MEQ TABLET 40 MEQ PO (16:02)
[2019-12-30] MEDS: carvediloL 6.25 MG TABLET PO (21:04)
[2019-12-31] VITALS (9 sets, daily range): BP systolic 145–189; BP diastolic 71–92; PULSE 78–93; RESP 20; TEMP 36.6; O2SAT 97–100
[2019-12-31] MEDS: metroNIDAZOLE 500 MG/ISO 100ML 500 MG/100 ML BAG 100 MG IVPB ×4 (02:21→20:42)
[2019-12-31] MEDS: MORPHINE SULFATE 4 MG/ML INJ IV PUSH ×3 (02:21→20:34)
[2019-12-31] MEDS: SODIUM CHLORIDE 0.9% IV 1,000 ML 125 ML IV CONT (08:23)
[2019-12-31] MEDS: carvediloL 6.25 MG TABLET PO ×2 (08:26→21:30)
[2019-12-31 09:03] LABS: Basophils Percent Auto 0.4 % (0.2-1.2); Eosinophils Absolute Auto 0.2 K/mm3 (0-0.3); Eosinophils Percent Auto 2.8 % (0-4.4); Hematocrit 33.4 % (37.0-47.0); Immature Granulocyte Absolute 0.01 K/mm3 (0.00-0.031); Immature Granulocyte Percent A 0.1 % (0-0.5); Lymphocytes Absolute Auto 2.45 K/mm3 (0.9-3.2); Lymphocytes Percent Auto 34.5 % (18.3-44.2); Mean Corpuscular HGB Conc 32.9 g/dl (32-36); Mean Corpuscular Hemoglobin 28.6 pg (26-34); Mean Corpuscular Volume 86.8 fl (80-100); Mean Platelet Volume 9.3 fl (7.4-10.4); Monocytes Absolute Auto 0.8 K/mm3 (0.1-0.6); Monocytes Percent Auto 10.7 % (2.6-8.5); Neutrophils Absolute Auto 3.7 K/mm3 (1.3-6.7); Neutrophils Percent Auto 51.5 % (45.5-73.1); Platelet Count Result 261 k/mm3 (150-375); Red Blood Count 3.85 M/mm3 (4.2-5.4); Red Cell Distribution Width 14.6 % (11.5-14.5); White Blood Count 7.1 K/mm3 (4.5-10.0)
[2019-12-31 09:15] LABS: Alanine Aminotransferase 12 U/L (4-35); Albumin Level 2.5 g/dL (3.5-5.1); Alkaline Phosphatase 44 U/L (38-126); Anion Gap 6 mmol/L (8-16); Aspartate Amino Transferase 34 U/L (14-36); Bilirubin,Total 0.2 mg/dL (0.2-1.3); Blood Urea Nitrogen 9 mg/dL (7-17); Calcium 7.9 mg/dL (8.4-10.2); Carbon Dioxide 23 mmol/L (22-30); Chloride 101 mmol/L (98-107); Estimated CRCL calculation 86 ml/min; Estimated Glomerular Filt Rate > 60; Glucose 75 mg/dL (65-105); Potassium 2.9 mmol/L (3.4-5.0); Sodium 130 mmol/L (137-145)
--- NOTE | 2019-12-31 09:17 | PCOTNOTE ---
OT attempted initial evaluation at 9:15. Pt reports she is in too much pain to move around or complete any type of therapy. She asked OT to come back in the afternoon.
[2019-12-31] MEDS: ALBUTEROL SULFATE (*SP) AEROSOL 1 PUFF 2 PUFF INHALATION ×2 (09:27→21:59)
[2019-12-31 10:01] LABS: Hepatitis B Surface Antigen Negative (Negative)
[2019-12-31 10:07] LABS: HAV RESULT Negative (Negative); Hepatitis B Core IgM Result Negative (Negative)
[2019-12-31 10:25] LABS: Hepatitis C Virus Antibody Reactive (Negative)
[2019-12-31] MEDS: POTASSIUM CHLORIDE 20 MEQ TABLET 40 MEQ PO ×2 (13:15→15:39)
[2019-12-31] MEDS: KCL 20MEQ/0.9% SOD CHL 1,000 ML 75 ML IV CONT (13:15)
--- NOTE | 2019-12-31 14:42 | PCPTNOTE ---
Attempted PT eval. Pt refused states she hurts and is too tired. Explained importance of therapy and she still refused. Will try again at later time.
--- NOTE | 2019-12-31 14:44 | PCOTNOTE ---
OT evaluation attempted. Patient adamantly refusing despite encouragement. Will attempt OT evaluation at later time.
--- NOTE | 2019-12-31 15:14 | PC.NURSE ---
This patient, Alexandra Loyola, was received from IMU on 12/31/19 at 1514. Personal belongings list checked and signed. Patient/family oriented to unit policies and routines
--- NOTE | 2019-12-31 15:48 | PC.NURSE ---
This patient, Alexandra Loyola, was transferred to [facility] on 12/31/19 at 1511. Personal belongings sent with patient. Belongings list checked and signed with receiving. Report given to MAVIS Ryder. Appropriate documentation sent with patient.
--- NOTE | 2019-12-31 17:14 | PM.IMPN ---
Progress Note: A&P Assessment and Plan (1) Colitis: Code(s): K52.9 - Noninfective gastroenteritis and colitis, unspecified Status: Acute Assessment and Plan: placed on vancomycin and Flagyl initially pending results of stool cultures. Bowel rest clear liquids and advanced to soft diet today (2) Acidosis, lactic: Code(s): E87.2 - Acidosis Status: Acute Assessment and Plan: resolved with aggressive IV fluids secondary to diarrhea and dehydration (3) Hypertension: Code(s): I10 - Essential (primary) hypertension Status: Acute Assessment and Plan: pressure was toward the low side so clonidine ,Coreg were on hold but restarted today as pressure is rebounding (4) IV drug abuse: Code(s): F19.10 - Other psychoactive substance abuse, uncomplicated Status: Chronic Assessment and Plan: relates has not used for over 30 days and continue to taper narcotic use and restart clonidine (5) Renal failure, acute: Code(s): N17.9 - Acute kidney failure, unspecified Status: Acute Assessment and Plan: probably all pre renal the basis of dehydration. creatinine now normal after hydration (6) DVT prophylaxis: Code(s): Z29.9 - Encounter for prophylactic measures, unspecified Status: Acute Assessment and Plan: Lovenox (7) Hepatitis C antibody positive in blood: Code(s): R76.8 - Other specified abnormal immunological findings in serum Status: Acute Assessment and Plan: confirmation by RNA pending Subjective Date/time seen: 12/31/19 17:14 Interval history: date of visit 12/30. 41-year-old hypertensive white female with chronic diarrhea since abdominal surgery in November admitted with weakness hypokalemia and found to have hadley colitis on CT scan. Stool cultures are pending including C diff and placed on IV antibiotics with Flagyl and cefepime . Feels slightly better this a.m. but still complains of abdominal pain which should is chronic since her surgery Exam Narrative: Exam Narrative: blood pressure 160/86 pulse is 82 and regular afebrile pupil equal reactive to light sclera anicteric mouth poor dentition otherwise normal neck supple lungs clear CV regular rate rhythm no murmurs abdomen is soft bowel sounds are present , well healed midline surgical scar extremities without edema distal pulses are 2+ neuro alert no focal deficits integument no skin breakdown or rash Objective Data Vital Signs Vital Signs: Vital Signs - 24 hr 08/25/20 19:44 12/30/19 20:00 12/30/19 21:04 Temperature 36.6 C Pulse Rate 94 94 94 Respiratory Rate 20 20 Blood Pressure 144/69 H Pulse Oximetry 100 100 12/31/19 04:00 12/31/19 08:00 12/31/19 08:26 Temperature 36.6 C 36.6 C Pulse Rate 78 80 80 Respiratory Rate 20 20 Blood Pressure 151/71 H 145/74 H Pulse Oximetry 98 100 12/31/19 09:19 12/31/19 09:33 12/31/19 12:00 Temperature 36.6 C Pulse Rate 80 Respiratory Rate 20 Blood Pressure 160/80 H Pulse Oximetry 100 100 100 Intake/Output Intake/Output: Intake & Output 12/28/19 12/29/19 12/30/19 12/31/19 23:59 23:59 23:59 23:59 Intake Total 5760 3513 Output Total 1000 2300 Balance 4760 1213 Meds/Results Medications: Active Medications Generic Name Dose Route Start Last Admin Trade Name Freq PRN Reason Stop Dose Admin Albuterol 2 puff 12/31/19 09:04 12/31/19 09:27 Proventil Hfa INHALATION 2 puff QIDRT PRN Administration Shortness Of Breath Carvedilol 6.25 mg 12/30/19 21:00 12/31/19 08:26 Coreg PO 6.25 mg Q12HR JUSTYN Administration Enoxaparin Sodium 40 mg 12/30/19 09:10 12/31/19 08:27 Lovenox SUB-Q Not Given DAILY JUSTYN Metronidazole 500 mg in 100 mls @ 100 mls/hr 12/30/19 09:00 12/31/19 16:35 Flagyl 500 Mg/Iso Soln 100 Ml IVPB Infused Q6H JUSTYN Infusion Potassium Chloride/Sodium Chloride 1,000 mls @ 75 mls/hr
[2019-12-31] MEDS: cloNIDine HCL 0.1 MG TABLET PO (20:34)
[2020-01-01] MEDS: metroNIDAZOLE 500 MG/ISO 100ML 500 MG/100 ML BAG 100 MG IVPB ×2 (02:03→09:12)
[2020-01-01] MEDS: MORPHINE SULFATE 4 MG/ML INJ IV PUSH ×2 (04:34→12:47)
[2020-01-01 04:44] VITALS: BP 180/78; PULSE 79; RESP 18; TEMP 36.2; O2SAT 100
--- NOTE | 2020-01-01 08:58 | PCPTNOTE ---
Attempted PT evaluation, pt adamantly refusing. States I'm not getting out of bed now or later.
--- NOTE | 2020-01-01 09:00 | PCOTNOTE ---
Attempted OT evaluation this AM. Patient refused any/all activity due to back pain. Will continue to attempt, however patient requested that therapy doesn't come back.
[2020-01-01 09:12] VITALS: PULSE 83
[2020-01-01] MEDS: carvediloL 6.25 MG TABLET PO (09:12)
[2020-01-01] MEDS: cloNIDine HCL 0.1 MG TABLET PO ×2 (09:12→21:12)
[2020-01-01] MEDS: KCL 20MEQ/0.9% SOD CHL 1,000 ML 75 ML IV CONT (09:12)
[2020-01-01 10:16] VITALS: BP 139/68
--- NOTE | 2020-01-01 11:28 | PCNFU ---
Nutrition Follow-Up Complete: Inadequate oral intake related to colitis, adynamic ileus as evidenced by NPO/clear liquid diet since admission with weight loss prior to admission and BMI of 15.6. Goal: Patient to meet estimated nutritional needs. Patient is progressing towards goal with an average of 28% meal consumption. Pt current nutrition is Soft/bite sized level 6. Nutrition recommendation: Agree with soft/bite sized diet. Recommend nutritional ice cream (300 kcal and 9 grams protein per serving) BID as patient reports dislike of ensure compact. Last recorded weight is 47.2 kg. Weight has remained stable. Bowel Motility: 01/01/20 last reported bowel movement Labs Reviewed: Hgb (11) Hct (33.4) Alb (2.5) Na (130) K (2.9) Cr (0.5). Meds noted: KCL being given at 75 ml/hr Meds Noted: Proventil, Coreg, KCL, Lovenox, Zofran, Normal Saline at 75 mL/hr, Ultram Additional Notes: Patient is still experiencing diarrhea. States appetite is good just feels full. No nausea or vomiting since admission but patient states she is afraid it may be coming. Encouraged patient to only consume what she is able to tolerate. States she has no trouble with chewing or swallowing food. Skin is WNL. Follow up every 3 days.
[2020-01-01 11:44] LABS: Basophils Percent Auto 0.3 % (0.2-1.2); Eosinophils Absolute Auto 0.1 K/mm3 (0-0.3); Hematocrit 31.1 % (37.0-47.0); Hemoglobin 10.4 g/dL (12.0-15.0); Immature Granulocyte Absolute 0.02 K/mm3 (0.00-0.031); Immature Granulocyte Percent A 0.3 % (0-0.5); Lymphocytes Absolute Auto 2.04 K/mm3 (0.9-3.2); Mean Corpuscular HGB Conc 33.4 g/dl (32-36); Mean Corpuscular Hemoglobin 28.7 pg (26-34); Mean Corpuscular Volume 85.9 fl (80-100); Mean Platelet Volume 9.2 fl (7.4-10.4); Monocytes Absolute Auto 0.6 K/mm3 (0.1-0.6); Monocytes Percent Auto 9.4 % (2.6-8.5); Neutrophils Absolute Auto 3.8 K/mm3 (1.3-6.7); Platelet Count Result 293 k/mm3 (150-375); Red Blood Count 3.62 M/mm3 (4.2-5.4); Red Cell Distribution Width 14.9 % (11.5-14.5); White Blood Count 6.6 K/mm3 (4.5-10.0)
--- NOTE | 2020-01-01 11:49 | PCNSR ---
On 01/01/20, the student, Roni Vogt, provided care and [facility]. I have reviewed the student's documentation and agree with the findings.
[2020-01-01 11:57] LABS: Anion Gap 5 mmol/L (8-16); Blood Urea Nitrogen 3 mg/dL (7-17); Calcium 7.3 mg/dL (8.4-10.2); Carbon Dioxide 26 mmol/L (22-30); Chloride 102 mmol/L (98-107); Estimated CRCL calculation 104 ml/min; Estimated Glomerular Filt Rate > 60; Glucose 143 mg/dL (65-105); Potassium 3.6 mmol/L (3.4-5.0); Sodium 133 mmol/L (137-145)
[2020-01-01 12:37] LABS: Vancomycin Trough 10.7 ug/mL (10.0-20.0)
[2020-01-01 13:36] VITALS: BP 157/84; PULSE 76; RESP 20; TEMP 36.4; O2SAT 100
--- NOTE | 2020-01-01 15:38 | PM.IMPN ---
Progress Note: A&P Assessment and Plan (1) Colitis: Code(s): K52.9 - Noninfective gastroenteritis and colitis, unspecified Status: Acute Assessment and Plan: placed on vancomycin and Flagyl initially . GDH for cdiff + so pcr for toxin sent. was to continue oral vanc but she states can not take so change to fidaxomicin tolerating soft diet (2) Acidosis, lactic: Code(s): E87.2 - Acidosis Status: Acute Assessment and Plan: resolved with aggressive IV fluids secondary to diarrhea and dehydration (3) Hypertension: Code(s): I10 - Essential (primary) hypertension Status: Acute Assessment and Plan: pressure was toward the low side so clonidine ,Coreg were held initially but restarted 12/30 as pressure is rebounding (4) IV drug abuse: Code(s): F19.10 - Other psychoactive substance abuse, uncomplicated Status: Chronic Assessment and Plan: relates has not used for over 30 days and continue to taper narcotic use and restarted clonidine (5) Renal failure, acute: Code(s): N17.9 - Acute kidney failure, unspecified Status: Acute Assessment and Plan: probably all pre renal the basis of dehydration. creatinine now normal after hydration (6) DVT prophylaxis: Code(s): Z29.9 - Encounter for prophylactic measures, unspecified Status: Acute Assessment and Plan: Lovenox (7) Hepatitis C antibody positive in blood: Code(s): R76.8 - Other specified abnormal immunological findings in serum Status: Acute Assessment and Plan: confirmation by RNA pending Subjective Date/time seen: 01/01/20 15:38 Interval history: date of visit 12/31. 49-year-old hypertensive white female with chronic diarrhea since abdominal surgery in November admitted with weakness hypokalemia and found to have hadley colitis on CT scan. Stool cultures are pending C diff and placed on IV antibiotics with Flagyl and cefipime initially. Feels slightly better this a.m. but still complains of abdominal pain which should is chronic since her surgery but diarrhea decreased and less abd pain Exam Narrative: Exam Narrative: blood pressure 156/84 pulse is 76 and regular afebrile pupil equal reactive to light sclera anicteric mouth poor dentition otherwise normal neck supple lungs clear CV regular rate rhythm no murmurs abdomen is soft bowel sounds are present , well healed midline surgical scar extremities without edema distal pulses are 2+ neuro alert no focal deficits integument no skin breakdown or rash Objective Data Vital Signs Vital Signs: Vital Signs - 24 hr 12/31/19 20:00 12/31/19 21:30 12/31/19 21:59 Temperature 36.6 C Pulse Rate 93 92 90 Respiratory Rate 20 20 Blood Pressure 189/92 H Pulse Oximetry 99 97 01/01/20 04:44 01/01/20 09:12 01/01/20 10:16 Temperature 36.2 C L Pulse Rate 79 83 Respiratory Rate 18 Blood Pressure 180/78 H 139/68 Pulse Oximetry 100 01/01/20 13:36 Temperature 36.4 C Pulse Rate 76 Respiratory Rate 20 Blood Pressure 157/84 H Pulse Oximetry 100 Intake/Output Intake/Output: Intake & Output 12/29/19 12/30/19 12/31/19 01/01/20 23:59 23:59 23:59 23:59 Intake Total 5760 3863 2370 Output Total 1000 3225 1460 Balance 4760 638 910 Meds/Results Medications: Active Medications Generic Name Dose Route Start Last Admin Trade Name Freq PRN Reason Stop Dose Admin Albuterol 2 puff 12/31/19 09:04 12/31/19 21:59 Proventil Hfa INHALATION 2 puff QIDRT PRN Administration Shortness Of Breath Carvedilol 6.25 mg 12/30/19 21:00 01/01/20 09:12 Coreg PO 6.25 mg Q12HR JUSTYN Administration Clonidine HCl 0.1 mg 12/31/19 21:00 01/01/20 09:12 Catapres PO 0.1 mg Q12HR JUSTYN Administration Enoxaparin Sodium 40 mg 12/30/19 09:10 01/01/20 12:47 Lovenox SUB-Q Not Given DAILY JUSTYN Fidaxomicin 200 mg 01/01/20 21:00 Dificid PO
--- NOTE | 2020-01-01 20:15 | PC.NURSE ---
Spoke with patient who stated that she wished to leave but had no transportation and no clothes to leave in. At this time she will stay unless she can reach someone to pick her up. Pt wished to have more pain medication and was informed of how medication was ordered and that it was not increased at this time per Sol Manzanares.
[2020-01-01 21:12] VITALS: PULSE 74
[2020-01-01] MEDS: carvediloL 12.5 MG TABLET PO (21:12)
[2020-01-01] MEDS: FIDAXOMICIN 200 MG TABLET PO (21:12)
[2020-01-02] MEDS: MORPHINE SULFATE 4 MG/ML INJ IV PUSH ×2 (00:47→13:01)
[2020-01-02 05:29] VITALS: BP 178/76; PULSE 65; RESP 20; TEMP 36.5; O2SAT 98
[2020-01-02 06:09] LABS: Albumin Level 2.5 g/dL (3.5-5.1); Anion Gap 4 mmol/L (8-16); Blood Urea Nitrogen 3 mg/dL (7-17); Calcium 8.5 mg/dL (8.4-10.2); Carbon Dioxide 24 mmol/L (22-30); Chloride 107 mmol/L (98-107); Estimated CRCL calculation 133 ml/min; Estimated Glomerular Filt Rate > 60; Glucose 103 mg/dL (65-105); Phosphorus 2.7 mg/dL (2.5-4.5); Potassium 4.2 mmol/L (3.4-5.0); Sodium 135 mmol/L (137-145)
[2020-01-02] MEDS: ALBUTEROL SULFATE (*SP) AEROSOL 1 PUFF 2 PUFF INHALATION (07:52)
[2020-01-02 07:55] VITALS: PULSE 76; RESP 16; O2SAT 98
[2020-01-02] MEDS: cloNIDine HCL 0.1 MG TABLET PO (08:37)
[2020-01-02] MEDS: amLODIPine BESYLATE 5 MG TABLET PO (08:37)
[2020-01-02] MEDS: FIDAXOMICIN 200 MG TABLET PO (08:37)
[2020-01-02 10:03] VITALS: PULSE 65
[2020-01-02] MEDS: carvediloL 12.5 MG TABLET PO (10:03)
--- NOTE | 2020-01-02 10:27 | PCNFU ---
Nutrition Follow-Up Complete: Inadequate oral intake related to colitis, adynamic ileus as evidenced by NPO/clear liquid diet since admission with weight loss prior to admission and BMI of 15.6. Goal: Patient to meet estimated nutritional needs. Patient is progressing towards goal with 38% average meal consumption. Will continue with current goal. Pt current nutrition is Soft/bite sized level 6. Nutrition recommendation: Agree with current recommendations Last recorded weight is 47.2 kg. Weight has increased 2 kg since 12/30/19. Bowel Motility: 01/01/20 last reported bowel movement. Labs Reviewed: Hgb (10.4) Hct (31.1) Alb (2.5) Na (135) BUN (3) Cr (0.3) Meds Noted: Proventil, Coreg, KCL, Lovenox, Zofran, Normal Saline at 75 mL/hr, Ultram, Norvesc. Additional Notes: Patient still experiencing diarrhea, states slightly better since receiving Banatrol plus. No nausea or vomiting reported, but states stomach is upset and feeling full. Reported dislike of nutritional ice cream and refused ensure clear. Previously received compact but order was cancelled due to patient's dislike. Encouraged patient to consume what she can tolerate. Follow up every 3 days.
--- NOTE | 2020-01-02 11:24 | PCNSR ---
On 01/02/20, the student,Roni Vogt, provided care and completed [facility] documentation on this patient. I have reviewed the student's documentation and agree with the findings.
[2020-01-02 14:00] VITALS: BP 166/79; PULSE 99; RESP 18; TEMP 36.4; O2SAT 99
--- NOTE | 2020-01-02 14:34 | PM.IMPN ---
Progress Note: A&P Assessment and Plan (1) Colitis: Code(s): K52.9 - Noninfective gastroenteritis and colitis, unspecified Status: Acute Assessment and Plan: placed on vancomycin and Flagyl initially . GDH for cdiff + so pcr for toxin sent. was to continue oral vanc but she states can not take so changed to fidaxomicin tolerating soft diet and will advance to normal (2) Acidosis, lactic: Code(s): E87.2 - Acidosis Status: Acute Assessment and Plan: resolved with aggressive IV fluids secondary to diarrhea and dehydration (3) Hypertension: Code(s): I10 - Essential (primary) hypertension Status: Acute Assessment and Plan: pressure was toward the low side so clonidine ,Coreg were held initially but restarted 12/30 as pressure is rebounding and amlodipine added 5 qd today (4) IV drug abuse: Code(s): F19.10 - Other psychoactive substance abuse, uncomplicated Status: Chronic Assessment and Plan: relates has not used for over 30 days and continue to taper narcotic use and restarted clonidine (5) Renal failure, acute: Code(s): N17.9 - Acute kidney failure, unspecified Status: Acute Assessment and Plan: probably all pre renal the basis of dehydration. creatinine now normal after hydration (6) DVT prophylaxis: Code(s): Z29.9 - Encounter for prophylactic measures, unspecified Status: Acute Assessment and Plan: Lovenox (7) Hepatitis C antibody positive in blood: Code(s): R76.8 - Other specified abnormal immunological findings in serum Status: Acute Assessment and Plan: confirmation by RNA pending Subjective Date/time seen: 01/02/20 14:34 Interval history: date of visit 01/01. 49-year-old hypertensive white female with chronic diarrhea since abdominal surgery in November admitted with weakness hypokalemia and found to have hadley colitis on CT scan. Stool cultures are so far negative and C diff PCR pending, placed on IV antibiotics with Flagyl and cefipime initially and now fodaxamicin pending cdiff testing. Feels slightly better this a.m. but still complains of abdominal pain which should is chronic since her surgery but diarrhea decreased and and eating more Exam Narrative: Exam Narrative: blood pressure 160/80 pulse is 92 and regular afebrile pupil equal reactive to light sclera anicteric mouth poor dentition otherwise normal neck supple lungs clear CV regular rate rhythm no murmurs abdomen is soft bowel sounds are present , well healed midline surgical scar extremities without edema distal pulses are 2+ neuro alert no focal deficits integument no skin breakdown or rash Objective Data Vital Signs Vital Signs: Vital Signs - 24 hr 01/01/20 21:12 01/02/20 05:29 01/02/20 07:55 Temperature 36.5 C Pulse Rate 74 65 76 Respiratory Rate 20 16 Blood Pressure 178/76 H Pulse Oximetry 98 98 01/02/20 10:03 01/02/20 14:00 Temperature 36.4 C Pulse Rate 65 99 Respiratory Rate 18 Blood Pressure 166/79 H Pulse Oximetry 99 Intake/Output Intake/Output: Intake & Output 12/30/19 12/31/19 01/01/20 01/02/20 23:59 23:59 23:59 23:59 Intake Total 5760 3863 4070 480 Output Total 1000 3225 1960 2000 Balance 4760 638 2850 1520 Meds/Results Medications: Active Medications Generic Name Dose Route Start Last Admin Trade Name Freq PRN Reason Stop Dose Admin Albuterol 2 puff 12/31/19 09:04 01/02/20 07:52 Proventil Hfa INHALATION 2 puff QIDRT PRN Administration Shortness Of Breath Amlodipine Besylate 5 mg 01/02/20 09:00 01/02/20 08:37 Norvasc PO 5 mg QAM JUSTYN Administration Carvedilol 12.5 mg 01/01/20 21:00 01/02/20 10:03 Coreg PO 12.5 mg Q12HR JUSTYN Administration Clonidine HCl 0.1 mg 12/31/19 21:00 01/02/20 08:37 Catapres PO 0.1 mg Q12HR JUSTYN Administration Enoxaparin Sodium 40 mg 12/30/19 09:10 01/02/20 08:36
[2020-01-02 17:50] LABS: Hepatitis C RNA, Quant PCR 1350000 IU/mL
--- NOTE | 2020-01-07 12:51 | PM.DS ---
DS: Admitting Diagnosis Admitting Diagnosis Admitting Diagnosis: Septic shock, Colitis, Elevated troponin DS: Discharge Diagnosis Discharge Diagnosis (1) Colitis: Code(s): K52.9 - Noninfective gastroenteritis and colitis, unspecified Status: Acute Assessment and Plan: placed on vancomycin and Flagyl initially . GDH for cdiff + but pcr for toxin negative. etiology of colitis probably infectious but no definite organism identified tolerating normal normal diet with resolution of diarrhea so discharged (2) Acidosis, lactic: Code(s): E87.2 - Acidosis Status: Acute Assessment and Plan: resolved with aggressive IV fluids secondary to diarrhea and dehydration (3) Hypertension: Code(s): I10 - Essential (primary) hypertension Status: Acute Assessment and Plan: pressure was toward the low side so clonidine ,Coreg were held initially but restarted 12/30 as pressure is rebounding and amlodipine added 5 qd (4) IV drug abuse: Code(s): F19.10 - Other psychoactive substance abuse, uncomplicated Status: Chronic Assessment and Plan: relates has not used for over 30 days and quick taper of narcotic use and restarted clonidine (5) Renal failure, acute: Code(s): N17.9 - Acute kidney failure, unspecified Status: Acute Assessment and Plan: probably all pre renal on the basis of dehydration. creatinine now normal after hydration 0.3 before d/c (6) DVT prophylaxis: Code(s): Z29.9 - Encounter for prophylactic measures, unspecified Status: Acute Assessment and Plan: Lovenox while inpatient (7) Hepatitis C antibody positive in blood: Code(s): R76.8 - Other specified abnormal immunological findings in serum Status: Acute Assessment and Plan: confirmed by RNA and informed patient needs to seek rx with [facility] or [facility] care DS: Summary Hospital Course Hospital Course: 48-year-old hypertensive female with history of narcotic drug abuse admitted with nausea vomiting dehydration, acute renal failure, and lactic acidosis.. Hydrated aggressively initially placed on antibiotics but stool cultures were all negative and diarrhea subsided with white blood cell count returning to normal as did electrolytes and acid-base status. Cultures of stool including C diff all negative. Still complaining of abdominal discomfort at the time of discharge although taking a normal diet. She relates that she has had abdominal pain prior to surgery she had in November near [place]. Encouraged her to follow-up with primary care. Time Spent with Patient Time attestation: Total time spent providing and/or coordinating discharge services:35 minutes Exam Narrative: Exam Narrative: Condition on discharge blood pressure 162/ 82 pulse 96 saturating 99% on room air afebrile lungs clear CV regular but tachy abdomen is soft bowel sounds normal active and minimal diffuse tenderness on palpation but no rebound or guarding extremities without edema distal pulses 2+ tolerating a regular diet with resolution of diarrhea but still complaints of abdominal pain Discharge Plan Discharge Attending physician on discharge: Jayce Vilchis Consulting providers: David Perez ; Sami Hussein ; Cleve Leal Discharging Clinician: Jayce Vilchis Patient Disposition: Home, Self-Care Activity: as tolerated Diet: regular Patient Instructions: Antibiotic Form, How to Stop Smoking (DC), Pain Management (DC), Colitis (ED) Stand Alone Forms: General Discharge Information Follow-up/Referrals: David Perez MD [Physician] - 2 Weeks Discharge Medications: New carvedilol [Coreg] 12.5 mg Tablet 12.5 mg PO Q12HR Qty: 60 RF: 0 amlodipine [Norvasc] 5 mg Tablet 5 mg PO QAM Qty: 30 RF: 0 Continued clonidine HCl [Catapres] 0.1 mg tablet 0.1 mg PO BID RF: 0 buprenorphine-naloxone 8-2 mg tablet, sublingual
== END 2020-01-02 19:17 | disposition home or self-care (01) | DRG 249 ==
LOC: ANHED 04:04 → ANHIMU 04:26 → ANH2MED 12-31 15:11
PROVIDERS: Admitting Provider Internal Medicine; Emergency Provider Emergency Medicine; Visit Provider Internal Medicine
DX: K52.9 Noninfective gastroenteritis and colitis, unspecified (principal); N17.9 Acute kidney failure, unspecified; E87.2 Acidosis; F17.210 Nicotine dependence, cigarettes, uncomplicated; E86.0 Dehydration; R79.89 Other specified abnormal findings of blood chemistry; I10 Essential (primary) hypertension; F19.10 Other psychoactive substance abuse, uncomplicated; R76.8 Other specified abnormal immunological findings in serum; Z59.0 Homelessness; Z79.899 Other long term (current) drug therapy; Z88.0 Allergy status to penicillin
CPT/HCPCS: 36415; 70450; 71260; 74177; 80048; 80053; 80069; 80074; 80202; 81001; 83605; 83690; 84484; 85025; 85610; 85730; 87015; 87045; 87046; 87086; 87177; 87209; 87269; 87272; 87324; 87427; 87493; 87522; 89055; 93005; 94640; 96361; 96365; 96366; 96367; 96368; 96372; 96375; 96376; 99291; A9270; G0378; G0379; J0692; J2270; J3370; J3480; J7030; Q9967

== ENCOUNTER 2020-01-24 11:54 | Emergency (ER) | payer MEDICAID, SELFPAY ==
--- NOTE | ~2020-01-24 | XR_ITS ---
XR chest 1V portable DATE: 01/24/2020 12:16 INDICATION: Chest pain TECHNIQUE: Portable upright AP chest on 01/24/2020 at 1211 hours COMPARISON: 12/30/2019 CT chest abdomen pelvis FINDINGS: No pulmonary infiltrate or consolidation, pleural effusion or pulmonary vascular congestion or pneumothorax. Heart size appears within normal limits. No hilar or mediastinal enlargement. Thoracic and lumbar scoliosis. IMPRESSION: No active cardiopulmonary disease Reviewed, dictated and finalized at [facility].
--- NOTE | ~2020-01-24 | CT_ITS ---
EXAMINATION: CT brain wo con DATE: 01/24/2020 12:42 INDICATION: Confusion TECHNIQUE: Computed tomography (CT) of the head was performed without intravenous contrast. The mA wa s adjusted according to patient size. Iterative reconstruction technique was employed. Exam dose: 60 5.33 mGy-cm total exam DLP. COMPARISON: None FINDINGS: There is nonspecific diminished attenuation of the cerebral white matter, including a focal stable area of more diminished hypoattenuation in the right frontal area, likely due to chronic smal l vessel ischemic changes, stable in appearance since 12/30/2019. No intracranial mass lesion or hemorrhage, midline shift or mass effects. No subdural or epidural hem atoma. The mastoid air cells and included paranasal sinuses are normally developed and aerated. No fracture or bone destruction of the cranial vault. IMPRESSION: No acute finding or significant change since 12/30/2019 Reviewed, dictated and finalized at [facility]. Reviewed, dictated and finalized at location [facility].
[2020-01-24 11:47] VITALS: BP 199/140; PULSE 157; RESP 24; TEMP 36.7; O2SAT 97
[2020-01-24 12:00] VITALS: BP 197/134; PULSE 145; RESP 20; O2SAT 97
--- NOTE | 2020-01-24 12:04 | ECG_ITS ---
Measurements Intervals [place] Rate: 158 P: 92 NV: 90 QRS: 66 QRSD: 90 T: 85 QT: 304 QTc: 493 Interpretive Statements SINUS TACHYCARDIA WITH SHORT NV INTERVAL, POSSIBLE ATRIAL FLUTTER LIMB LEAD REVERSAL LEFT VENTRICULAR HYPERTROPHY AND ST-T CHANGE ST ABNORMALITY IN ANTEROLAT/INF LEADS- CONSIDER ISCHEMIA BASELINE ARTIFACT- I, II, III, AVL, AVF ABNORMAL ECG Electronically Signed On 01-24-2020 14:10:26 CDT by Cleve Leal D.O.
--- NOTE | 2020-01-24 12:11 | PC.NURSE ---
PT ATTEMPT TO VOID, UNSUCCESSFUL. REFUSES STRAIGHT CATH. STATES WILL TRY AGAIN LATER
[2020-01-24] MEDS: LABETALOL HCL INJ 100 MG/20 ML VIAL 20 MG IV PUSH (12:15)
[2020-01-24 12:24] LABS: Basophils Absolute Auto 0.1 K/mm3 (0.0-0.1); Basophils Percent Auto 0.8 % (0.2-1.2); Hematocrit 52.7 % (37.0-47.0); Hemoglobin 17.2 g/dL (12.0-15.0); Immature Granulocyte Absolute 0.17 K/mm3 (0.00-0.031); Immature Granulocyte Percent A 1.1 % (0-0.5); Lymphocytes Absolute Auto 2.79 K/mm3 (0.9-3.2); Lymphocytes Percent Auto 17.8 % (18.3-44.2); Mean Corpuscular HGB Conc 32.6 g/dl (32-36); Mean Corpuscular Hemoglobin 26.9 pg (26-34); Mean Corpuscular Volume 82.3 fl (80-100); Mean Platelet Volume 8.5 fl (7.4-10.4); Monocytes Absolute Auto 0.3 K/mm3 (0.1-0.6); Monocytes Percent Auto 1.7 % (2.6-8.5); Neutrophils Absolute Auto 12.3 K/mm3 (1.3-6.7); Neutrophils Percent Auto 78.6 % (45.5-73.1); Platelet Count Result 895 k/mm3 (150-375); Red Cell Distribution Width 14.9 % (11.5-14.5); White Blood Count 15.7 K/mm3 (4.5-10.0)
--- NOTE | 2020-01-24 12:32 | ED.GENADULT ---
HPI - General Adult General Chief complaint: Altered Mental Status Stated complaint: ams Time Seen by Provider: 01/24/20 12:07 Source: patient and EMS Limitations: altered mental status History of Present Illness HPI narrative: Patient is 50 y/o brought in by EMS for altered mental status. Patient was reportedly acting normal this morning. However, friend noticed she was not acting right prior to arrival. He states that she was laying bed with arms crossed in front of her chest. He states she was stiff, not answering any question. She sounded like she was choking. He did not notice any shaking. He called EMS subsequently. Currently, she complains of some chronic abdominal pain and low back pain. She also has some diarrhea. She denies recent alcohol and drug use. Related Data Home Medications Medication Instructions Recorded Confirmed clonidine HCl [Catapres] 0.1 mg PO BID 10/22/19 12/30/19 Allergies Allergy/AdvReac Type Severity Reaction Status Date / Time Penicillins Allergy Unknown Other Verified 01/24/20 11:56 Review of Systems Constitutional: Constitutional: Denies chills, Denies fever(s), Denies headache(s) and Denies weakness Eyes: Eyes: Denies blurry vision ENT: Denies headache(s) and Denies neck pain Cardiovascular: Cardiovascular: Reports chest pain and Denies dyspnea Respiratory: Respiratory: Denies cough and Denies dyspnea Gastrointestinal: Gastrointestinal: Reports abdominal pain, Reports diarrhea, Denies nausea and Denies vomiting Genitourinary: Genitourinary: Denies hematuria and Denies dysuria Musculoskeletal: Musculoskeletal: Denies back pain and Denies neck pain Neurologic: Denies headache(s) and Denies weakness [facility] Past Medical History Medical History Asthma Hypertension IV drug abuse Seizure last one in april Small bowel obstruction Surgical History Surgical History No significant past surgical history S/P laparotomy Family History Family History Father , in his 50s Acute myocardial infarction Mother Ovarian cancer Social History Social History Social History: The patient is unemployed and homeless. She is an IV drug user and has been using illicit drugs on and off for about 20 years. She smokes about 1/2 PPD if she is able to get this from others. Does not have anyone to designate as her decision maker. states she has been drug free past 30-60 days Smoking packs per day: 0.5 Smoking cigarettes per day: 10.0 Years smoked: 35 Smoking pack-years: 17.50 Smoking status: Current every day smoker Tobacco type: cigarettes Alcohol intake: never Substance use: current Substance use type: sedatives Other substance usage details: ,klonipine, fentanyl Last use: 2:00 am Spiritual care concerns: No Exam Const: General: no acute distress and well developed Orientation/consciousness: oriented to person, oriented to place and confusion HENMT: Head: normocephalic Ears: external ears normal General nose exam: Normal external nose present Eyes: General: appearance normal, both eyes and all related structures Conjunctivae: conjunctivae normal Neck: Neck: normal visual inspection and full ROM Chest: Chest palpation & inspection: normal inspection of the chest and no tenderness Resp: Effort & Inspection: normal respiratory effort Auscultation: clear to auscultation bilaterally Cardio: Rate: tachycardic Rhythm: regular rhythm GI: GI Palp: No abdominal tenderness and Yes Soft to palpation Skin: General skin exam: normal color and turgor normal Neuro: General: oriented to person, oriented to place and confusion Cognition (Neuro): normal cognition Extrem: General: normal to inspection, full ROM and no pedal edema Psych: Appear
[2020-01-24 12:38] LABS: Ethanol < 10 mg/dL (<10)
--- NOTE | 2020-01-24 12:49 | ECG_ITS ---
Measurements Intervals [place] Rate: 98 P: 81 MO: 153 QRS: 58 QRSD: 87 T: 58 QT: 398 QTc: 508 Interpretive Statements SINUS RHYTHM LIMB LEAD REVERSAL RIGHT ATRIAL ENLARGEMENT LEFT ATRIAL ENLARGEMENT POSSIBLE LEFT VENTRICULAR HYPERTROPHY BORDERLINE ST ABNORMALITY- ANTEROLAT/INF LEADS BORDERLINE ECG Electronically Signed On 01-24-2020 14:14:08 CDT by Cleve Leal D.O.
[2020-01-24 12:57] VITALS: BP 152/102; PULSE 99; RESP 20; O2SAT 100
[2020-01-24] MEDS: SODIUM CHLORIDE 0.9% IV 1,000 ML 999 ML IV CONT (13:07)
[2020-01-24 13:10] LABS: Alanine Aminotransferase 26 U/L (4-35); Albumin Level 4.3 g/dL (3.5-5.1); Alkaline Phosphatase 92 U/L (38-126); Anion Gap 23 mmol/L (8-16); Aspartate Amino Transferase 32 U/L (14-36); Bilirubin,Total 0.5 mg/dL (0.2-1.3); Blood Urea Nitrogen 12 mg/dL (7-17); Calcium 10.4 mg/dL (8.4-10.2); Carbon Dioxide 15 mmol/L (22-30); Chloride 93 mmol/L (98-107); Estimated CRCL calculation 45 ml/min; Estimated Glomerular Filt Rate > 60; Glucose 294 mg/dL (65-105); Sodium 131 mmol/L (137-145); Troponin I < 0.012 ng/mL (0.000-0.034)
[2020-01-24 13:43] VITALS: BP 155/102; PULSE 99; RESP 20; O2SAT 100
[2020-01-24 14:00] LABS: Add Urine Microscopic? YES; Appearance Urine Cloudy (Clear); Bilirubin Urine Negative (Negative); Blood Urine Negative (Negative); Color Urine Yellow (Yellow); Glucose Urine UA 2+ mg/dL (Negative); Hyaline Casts Urine 50+ /lpf; Ketones Urine Negative (Negative); Leukocyte Esterase Ur Negative LEU/UL (Negative); Mucus Urine Few /lpf; Nitrate Urine Negative (Negative); Protein Urine 3+ mg/dL (Negative); RBC Urine 0-2 /hpf (0-2); Specific Grav Ur 1.013 (1.001-1.035); Squamous Epithelial Cell Urine Many /hpf (Few); Urobilinogen Urine Negative mg/dL (<2.0)
[2020-01-24 14:08] LABS: Amphetamine Screen Urine Negative (Negative); Barbiturate Screen Urine Negative (Negative); Benzodiazepines Screen Urine Negative (Negative); Cannabinoid Screen Urine Negative (Negative); Cocaine Screen Urine Negative (Negative); Methadone Screen Urine Negative (Negative); Opiate Screen Urine Negative (Negative); Phencyclidine Screen Urine Negative (Negative)
[2020-01-24] MEDS: amLODIPine BESYLATE 5 MG TABLET 10 MG PO (14:24)
[2020-01-24 14:25] VITALS: BP 195/113; PULSE 113; RESP 20; O2SAT 100
[2020-01-24 14:27] LABS: Creatine Kinase 35 U/L (30-135)
[2020-01-24 14:32] LABS: Lactic Acid Reflex 2.2 mmol/L (0.7-2.1)
[2020-01-24 14:49] VITALS: BP 176/108; PULSE 110; RESP 20; O2SAT 98
[2020-01-24 17:17] LABS: Reflex Lactic Acid Yes or No Add Lactic
== END 2020-01-24 14:52 | disposition left against medical advice (07) ==
PROVIDERS: Emergency Provider Emergency Medicine
DX: E87.2 Acidosis (principal); R00.0 Tachycardia, unspecified; R41.82 Altered mental status, unspecified; I10 Essential (primary) hypertension; F17.210 Nicotine dependence, cigarettes, uncomplicated; J45.909 Unspecified asthma, uncomplicated
CPT/HCPCS: 36415; 51701; 70450; 71045; 80053; 80307; 81001; 81025; 82550; 83605; 84484; 85025; 93005; 96361; 96374; 99284; A9270; J7030